=== PATIENT | male | born 1950 | race Caucasian/White ===

== ENCOUNTER → 2016-09-30 | Outpatient (CLI) | payer MEDICARE ==
[2016-09-30 13:05] LABS: BLOOD GAS BASE EXCESS 1.8 mmol/L (-2-2); BLOOD GAS CARBOXYHEMOGLOBIN 1.8 % (0-4); BLOOD GAS HCO3 25 mmol/L (22-26); BLOOD GAS METHEMOGLOBIN 0.9 % (0-2); BLOOD GAS O2 HGB SATURATION 95 % (90-100); BLOOD GAS OXYGEN CONTENT 18.4 Vol % (12.0-20.0); BLOOD GAS PCO2 37 mmHg (38-42); BLOOD GAS PO2 94 mmHg (61-120); BLOOD GAS TOTAL HGB 13.7 G/DL (12.0-16.0); CRITICAL VALUE NO; DRAW SITE RT RADIAL; FIO2 21 %; NUMBER OF ARTERIAL PUNCTURES 1; STAT NO; TEMP CORR TO 98.6; ULNAR PULSE PRESENT
--- NOTE | 2016-10-03 14:27 | RSPPFT ---
DATE OF PROCEDURE: 09/30/16 COMMENTS: Spirometry shows FVC of 3.3 at 58% of predicted, FEV1 of 2.6 at 66%, FEV1/FVC ratio is normal. Flow is decreased at FEF 75 and FEF 25-75. There is no response after bronchodilator treatment. Diffusion capacity is normal. Room air arterial blood gases show pH of 7.45, PCO2 of 37, PO2 of 94, BiCarb of 25 and O2 Saturation at 95%. IMPRESSION: 1. Mild small airways obstructive lung disease. 2. Restrictive lung disease cannot be ruled out from this study. 3. No response after bronchodilator. 4. Normal diffusion capacity. 5. Blood gases show normal oxygenation on room air.
== END ==
LOC: HRSP 08:37
PROVIDERS: ATTEND Specialist
DX: J44.9 Chronic obstructive pulmonary disease, unspecified (principal)
CPT/HCPCS: 36600; 82805; 94060; 94620; 94726; 94729